=== PATIENT | male | born 1950 | race Two or more races ===

== ENCOUNTER 2018-06-17 19:59 | Emergency (ER) | payer SELFPAY ==
[~2018-06-17] VITALS: Ht 167.6 cm; Wt 91.0 kg
[2018-06-17] MEDS ORDERED: HYDROCODONE/ACETAMINOPHEN 5/325MG TABLET PO ONE (21:30)
[2018-06-17] MEDS ORDERED: IBUPROFEN 800MG TABLET PO ONE (21:30)
[2018-06-18 00:24] VITALS: BP 136/71
== END 2018-06-18 00:24 | disposition home or self-care (01) ==
LOC: ER 20:06
DX: S70.01XA Contusion of right hip, initial encounter (principal); M79.601 Pain in right arm; R03.0 Elevated blood-pressure reading, without diagnosis of hypertension; W01.0XXA Fall on same level from slipping, tripping and stumbling without subsequent striking against object, initial encounter; Y93.89 Activity, other specified; Y92.018 Other place in single-family (private) house as the place of occurrence of the external cause
CPT/HCPCS: 71045; 72170; 99284; Z7610